=== PATIENT | female | born 1980 | race Caucasian/White ===

== ENCOUNTER → 2016-06-02 | Day surgery (SDC) | payer BC ==
--- NOTE | 2016-05-19 14:49 | HP ---
DATE OF ADMISSION: 06/02/2016. ATTENDING SURGEON: Dr. Bashir Weber (FANTA Harmon dictating). CHIEF COMPLAINT: Umbilical hernia. HISTORY OF PRESENT ILLNESS: This is a generally healthy, 35-year-old female with an umbilical bulge since the of her last child three years ago. She states that the bulge has gradually increased in size over the past couple of years and more recently has been associated with some discomfort, though nothing to suggest incarceration or strangulation. She has curved her abdominal exercises specifically because of concern for worsening symptoms. She remains very active otherwise. She denies any GI complaints. She was seen in the office by Dr. Weber on 03/04/2016 at which time the exam confirmed the presence of a reducible, nontender umbilical hernia. The bulge itself measured approximately 3 cm, but reduced to a defect of about [address] Weber discussed with her the indications, risks, benefits and alternatives to surgery. Per her recollection, he had told her that this could be done as an open repair, though his booking slip indicated use of mesh. I will confirm with him and get back to the patient, but at this point the patient would like to proceed as scheduled with open repair of umbilical hernia. PAST MEDICAL HISTORY: Patient is generally healthy, though she has experienced recurrent sacroiliac pain since the of her last child and is in the process of being worked up for possible ankylosing spondylitis through Dr. Viveros's office. She was also recently treated with 30 days of Doxycycline for Lyme disease (this had no effect on her joint pain). PAST SURGICAL HISTORY: Her only previous surgeries are left eye surgery as a child and wisdom teeth extraction. No problems reported. CURRENT MEDICATIONS: 1. She recently finished a 30 day course of Doxycycline. 2. Vitamin D 5000 international units once daily. 3. Vitamin C 1000 mg once daily. DRUG ALLERGIES: None known. FAMILY HISTORY: Negative for anesthesia problems, bleeding or clotting disorders. SOCIAL HISTORY: The patient is . She has four children. 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 She denies the use of tobacco and drinks alcohol rarely. She denies other substance use. REVIEW OF SYSTEMS: General: No recent constitutional symptoms, other than noted above. No recent acute illnesses. Cardiovascular: No chest pain, palpitations, history of hypertension or heart murmur. Respiratory: No history of asthma, chronic cough, or shortness of breath. GI: No problems reported. : No problems reported. 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 Endocrine: No diabetes. She has had a low free T4, but a normal TSH and is followed closely by Dr. Smith. Musculoskeletal: As noted above, no additions. PHYSICAL EXAMINATION GENERAL: Well-nourished, well-developed female in no acute distress. SKIN: Warm and dry. No suspicious rashes or lesions noted. VITAL SIGNS: Height 5'6-1/2", weight 138 pounds by history. Temperature 98.3, blood pressure 100/64, pulse 64, BMI 21.9. HEENT: Pupils equal and round, reactive. EOM's intact. No conjunctival pallor. Oropharynx: Teeth in good repair. No intraoral lesions. NECK: No lymphadenopathy, thyromegaly or masses. LUNGS: Clear to auscultation. No wheezes. HEART: Regular rate and rhythm. No murmur noted. BREASTS: Not examined. ABDOMEN: Obvious umbilical hernia (see above per Dr. Weber's exam). This is nontender, but incompletely reducible on today's exam. The remainder of the abdomen is soft and nontender, and without palpable masses or organomegaly. BACK: No spinous process or CVA tenderness. She does have some tenderness in the sacroiliac areas bilaterally. EXTREMITIES: No edema. GENITALIA: Not done. RECTAL: Not done. NEUROLOGIC: Grossly intact. IMPRESSION: Umbilical hernia. PLAN: Open repair umbilical hernia (primary repair versus use of mesh to be clarified with Dr. Weber and consent to be signed the day of surgery). FANTA HERNANDEZ CC: Dr. Smith; Dr. Viveros [id number]/[facility] #: [id number] [facility]
[~2016-06-02] MED LIST: Buffered Lidocaine 1% SYR 3ML* 3 ML/SYR SYRINGE INTRADERM ONE; Buffered Lidocaine 1% SYR 3ML* 3 ML/SYR SYRINGE ONE; Bupivacaine 0.5% W/EPI SDV* 30 ML VIAL ONE; Dexamethasone IV* 4 MG/ML 1 ML (4 MG) ONE; Famotidine IV* 10 MG/ML 2 ML (20 mg) ONE; Ketorolac INJ* 30 MG/ML 1 ML VIAL IV PRN; Lidocaine 1% INJ* 10 MG/ML 30 ML SDV ONE; Midazolam* 1 MG/ML 2 ML VIAL (2 MG) ONE; ceFAZolin 2 GM PREMIX (*) 2 GM/50 ML BAG IVPB ONE; fentaNYL* 50 MCG/ML 2 ML VIAL (100 MCG VIAL) IV PRN; fentaNYL* 50 MCG/ML 2 ML VIAL (100 MCG VIAL) ONE; oxyCODONE/Acetamin 5/325 MG* TAB ONE; oxyCODONE/Acetamin 5/325 MG* TAB PO PRN
[2016-06-02 07:25] LABS: Manual Entry Verification HAN0055; UR Preg Internal Control QC Line Present
[2016-06-02] MEDS: Famotidine IV* 10 MG/ML 2 ML (20 mg) IV ONE ×2 (07:29→07:30)
[2016-06-02] MEDS: Dexamethasone IV* 4 MG/ML 1 ML (4 MG) IV SLOW PU ONE ×2 (07:29→07:30)
--- NOTE | 2016-06-02 08:37 | SURGPN ---
Brief Operative Note - Surgery Procedures: Procedures OPERATIVE REPORT PRE-OP: Umbilical hernia POST-OP: 1 cm umbilical hernia PROCEDURE: Open primary repair of umbilical hernia ( no mesh) SURGEON: MD Tia ANESTHESIA:Local with MAC ASST: none IVF: min EBL:min SPECIMEN: none DRAIN: none WOUND CLASS: One COMPLICATIONS: none TO PACU
[2016-06-02 09:35] VITALS: BP 99/80
--- NOTE | 2016-06-02 22:07 | OP ---
DATE OF OPERATION: 06/02/16 [facility] DATE OF : 78 SURGEON: Bashir Weber MD. CONCRETE POURER: None. ANESTHESIOLOGIST: Javier Rosenthal MD ANESTHESIA: Local with monitored anesthesia care. PRE-OP DIAGNOSIS: Umbilical hernia. POST-OP DIAGNOSIS: 1.1 cm diameter umbilical hernia. OPERATIVE PROCEDURE: Open primary repair of umbilical hernia. SPECIMENS: None. COMPLICATIONS: None. DRAINS: None. WOUND CLASSIFICATION: 1. FINDINGS: Small fat containing umbilical hernia closed primarily. DESCRIPTION OF PROCEDURE: Written and informed consent was obtained, and the abdomen was marked with indelible ink. Preoperative antibiotics were administered and the patient was taken to the operating room and placed in the supine position. Sequential compression devices and a warming blanket were applied. Anesthesia was administered and the abdomen was prepped and draped in the usual sterile fashion. A time-out verification was completed. 0.25% Marcaine mixed with 1% lidocaine with epinephrine was infiltrated in the periumbilical area and a small semi-circular incision was made just inferior to the umbilical fold. Dissection was carried down to the fascia and the overlying umbilical skin was excised off with small fat containing hernia. The fascial edges appeared to be healthy and the defect was no more than about 1 to 1.2 cm in size. I did not enter the peritoneal cavity, did free some of the fascia up in the preperitoneal space and I felt that the mesh was not warranted. The fascia was then closed primarily in a transverse orientation with three interrupted 0 Polysorb suture. Hemostasis was assured. The wound was then closed in layers of 3-0 and 4-0 Polysorb sutures and Steri-Strips and sterile dressings were applied. Additional Marcaine had been infiltrated for postoperative pain relief. The patient tolerated the procedure well, was taken to the recovery room in stable condition. [id number]/[facility] #: [id number] [facility]
== END | disposition home or self-care (01) ==
LOC: OR 06:48
PROVIDERS: ATTEND Surgery
DX: K42.9 Umbilical hernia without obstruction or gangrene (principal)
CPT/HCPCS: 81025; A9270-GY; J0690; J1100; J2250; J3010

== ENCOUNTER 2017-06-20 19:39 | Emergency (ER) | payer BC ==
[2017-06-20 21:30] VITALS: BP 115/82
[2017-06-20] MEDS ORDERED: Amoxicillin PO (*) 500 MG CAP PO ONE (22:36)
--- NOTE | 2017-06-20 22:44 | UC ---
Throat Pain/Nasal Yariel HPI - HPI Summary HPI Summary: ONSET OF ST AND PAIN WITH SWALLOWING TODAY. HAS SUBJECTIVE FEVER. HAS STREP. - History of Current Complaint Chief Complaint: UCRespiratory Stated Complaint: SORE THROAT Time Seen by Provider: 06/20/17 22:21 Hx Obtained From: Patient Hx Last Menstrual Period: 06/20/17 Onset/Duration: Sudden Onset, Lasting Hours, Still Present Severity: Moderate Pain Intensity: 8 Pain Scale Used: 0-10 Numeric Cough: None Associated Signs & Symptoms: Positive: Fever - Allergies/Home Medications Allergies/Adverse Reactions: Allergies Allergy/AdvReac Type Severity Reaction Status Date / Time No Known Allergies Allergy Verified 06/20/17 21:30 Home Medications: Home Medications Etanercept [Enbrel] 50 mg INJ WEEKLY 06/20/17 [History Confirmed 06/20/17] PMH/Surg Hx/FS Hx/Imm Hx - Additional Past Medical History Additional PMH: ARTHRITIS - Surgical History Surgical History: Yes Surgery Procedure, Year, and Place: NEMUS - MOLE REMOVED FROM EYE ( A CHILD) . UMBILICAL HERNIA REPAIR 05/2015. WISDOM TEETH - Family History Known Family History: Positive: Hypertension - Social History Alcohol Use: Rare Substance Use Type: None Smoking Status (MU): Never Smoked Tobacco Have You Smoked in the Last Year: No - Immunization History Most Recent Influenza Vaccination: unk Most Recent Tetanus Shot: unk Most Recent Pneumonia Vaccination: unk Review of Systems Constitutional: Fever ENT: Sore Throat Respiratory: Negative Cardiovascular: Negative Gastrointestinal: Negative All Other Systems Reviewed And Are Negative: Yes Physical Exam Triage Information Reviewed: Yes Appearance: No Pain Distress, Well-Nourished, Ill-Appearing - MILD Vital Signs: Initial Vital Signs Temp 98.9 F 06/20/17 21:26 Pulse 62 06/20/17 21:26 Resp 14 06/20/17 21:26 BP 115/82 06/20/17 21:26 Pulse Ox 100 06/20/17 21:26 Vital Signs Reviewed: Yes Eyes: Positive: Conjunctiva Clear ENT: Positive: Hearing grossly normal, Pharyngeal erythema, TMs normal. Negative: Tonsillar swelling, Hoarse voice Neck: Positive: Supple, Tenderness @ - SPFL CERVICAL LAD, Enlarged Nodes @ - SPFL CERVICAL LAD Respiratory Exam: Normal Cardiovascular Exam: Normal Abdomen Description: Positive: Soft Musculoskeletal: Positive: No Edema Neurological: Positive: Alert Psychological: Positive: Age Appropriate Behavior Skin: Negative: rashes Diagnostics - Laboratory Diagnostic Studies Completed/Ordered: STREP TEST POSITIVE Throat Pain/Nasal Course/Dx - Differential Dx/Diagnosis Provider Diagnoses: STREP PHARYNGITIS Discharge - Discharge Plan Condition: Stable Disposition: HOME Prescriptions: Amoxicillin PO (*) [Amoxicillin 500 MG CAP*] 1,000 mg PO DAILY #18 cap Patient Education Materials: Strep Throat (ED) Referrals: Mary Arroyo MD [Primary Care Provider] - If Needed Additional Instructions: STREP TEST POSITIVE OTC CHLORASEPTIC OR CEPACOL LOZENGES AND/OR IBUPROFEN FOR SORE THROAT NEEDED ONCE SYMPTOMS RESOLVED - NEW TOOTHBRUSH DO NOT SHARE FOOD, DRINK, UTENSILS
== END 2017-06-20 22:51 | disposition home or self-care (01) ==
LOC: UCEAST 19:39
DX: J02.0 Streptococcal pharyngitis (principal); M19.90 Unspecified osteoarthritis, unspecified site
CPT/HCPCS: 87651; 99212; A9270-GY; G0463